=== PATIENT | male | born 1995 | race Caucasian/White ===

== ENCOUNTER → 2017-07-16 | Outpatient (CLI) | payer BC | LOC: LAB.O 08:38 | PROVIDERS: ATTEND Nurse Practitioner Family | DX: Z00.00 Encounter for general adult medical examination without abnormal findings (principal) ==

== ENCOUNTER → 2017-10-07 | Outpatient (CLI) | payer BC ==
--- NOTE | 2017-10-08 08:27 | CT ---
Louie Chirinos ( 21Y M ) October 07, 2017 EXAM DESCRIPTION: CT head without contrast CLINICAL HISTORY: Amnesia COMPARISON: None available TECHNIQUE: Noncontrast head CT was performed with routine protocol. FINDINGS: Normal zaman-white matter differentiation. Ventricles and sulci are normal for age. No high density hemorrhage, focal edema or shift of the midline. No sulcal effacement. Normal orbital contents. Basilar cisterns appear clear. Intact calvarium with no fracture or lytic lesion. Normal aeration of tympanic cavities and mastoid air cells. No fluid levels in the paranasal sinuses. Skull base appears intact. Symmetrical internal auditory canals. Coronal and sagittal reformatted images confirm the findings. IMPRESSION: No acute intracranial pathologic process. This exam was performed according to our departmental dose-optimization program, which includes automated exposure control, adjustment of the mA and/or kV according to patient size and/or use of iterative reconstruction technique. Total DLP equals 859.97 mGycm. Electronically signed by: Caleb Rivera MD 10/08/2017 8:25 AM CDT
== END ==
LOC: CT 08:28
PROVIDERS: ATTEND Nurse Practitioner Family
DX: R41.3 Other amnesia (principal)

== ENCOUNTER → 2019-03-24 | Outpatient (CLI) | payer BC | LOC: YCFC.O 16:07 | PROVIDERS: ATTEND Nurse Practitioner Family | DX: R73.09 Other abnormal glucose (principal); M25.50 Pain in unspecified joint ==

== ENCOUNTER 2019-12-17 19:15 | Emergency (ER) | payer SELFPAY ==
[2019-12-17 19:39] VITALS: BP 146/93; TEMP 97.6
[2019-12-17] MEDS ORDERED: AMOXICILLIN & POT CLAVULANATE 875 MG TAB PO ONE (19:42)
--- NOTE | 2019-12-17 19:45 | ED.PDOC ---
History of Present Illness - General Chief Complaint: ENT Problem Stated Complaint: sore throat, hurt to swallow Time Seen by Provider: 12/17/19 19:42 Source: patient Exam Limitations: no limitations - History of Present Illness Initial Comments: 24 yo with tonsillitis bilat with severe erythema but no exudates. 48 hr duration. mild fever and body aches associated. no abscess. Timing/Duration: other Severity: moderate Improving Factors: nothing Worsening Factors: nothing Associated Symptoms: fever/chills, loss of appetite, malaise Home Medications: Ambulatory Orders Amoxicillin & Pot Clavulanate [Augmentin Tab] 875 mg PO BID #20 tab 12/17/19 Review of Systems - Review of Systems Constitutional: States: fever, malaise EENTM: States: throat pain Respiratory: States: no symptoms reported Cardiology: States: no symptoms reported Gastrointestinal/Abdominal: States: no symptoms reported Genitourinary: States: no symptoms reported Musculoskeletal: States: no symptoms reported Skin: States: no symptoms reported Neurological: States: no symptoms reported Endocrine: States: no symptoms reported All other Systems: No Change from Baseline Past Medical History (General) - Patient Medical History Hx Asthma: No Hx of COPD: No Hx Hypertension: No Hx Diabetes: No Surgical History: other - Vaccination History Hx Tetanus, Diphtheria Vaccination: Yes Hx Influenza Vaccination: No Hx Pneumococcal Vaccination: No - Social History Hx Tobacco Use: Yes Hx Alcohol Use: Yes Family Medical History - Family History Mother Hx Cardiac Disease: Yes Physical Exam - Physical Exam General Appearance: Alert, Comfortable, No apparent distress Eye Exam: bilateral normal Ears, Nose, Throat: hearing grossly normal, pharyngeal erythema, tonsillar swelling Neck: full range of motion Respiratory: lungs clear, normal breath sounds, no respiratory distress, no accessory muscle use Cardiovascular/Chest: normal peripheral pulses, no edema, other - reg rate Peripheral Pulses: radial,right: 2+, radial,left: 2+ Rectal Exam: deferred Extremity: normal range of motion, no calf tenderness, normal capillary refill Neurologic: manager alliance II-XII nml as tested, alert, normal mood/affect, oriented x 3 Skin Exam: normal color Comments: Vital Signs - 24 hr 12/17/19 19:32 Temperature 97.6 F Pulse Rate [ 100 H left] Respiratory 18 Rate Blood Pressure 146/93 [left] O2 Sat by Pulse 97 Oximetry Progress - Progress Progress: 12/17/19 19:45 24 yo cm with bilateral acute tonsillitis. will cover with 10 days of oral augmentin. keep well hydrated. motrin for pain. keep routine fu with pcp. er warnings. lisa solorio [phone] Departure - Departure Clinical Impression: Tonsillitis Disposition: Discharge to Home or Self Care Condition: Fair Departure Forms: ED Discharge - Pt. Copy, Patient Portal Self Enrollment Instructions: Sore Throat, Adult (DC) Diet: regular diet Activity: increase activity as tolerated Referrals: Denise Ruiz NP [Primary Care Provider] - 1-2 Weeks Prescriptions: Amoxicillin & Pot Clavulanate [Augmentin Tab] 875 mg PO BID #20 tab Home Medications: Ambulatory Orders Amoxicillin & Pot Clavulanate [Augmentin Tab] 875 mg PO BID #20 tab 12/17/19 Additional Instructions: 24 yo cm with bilateral acute tonsillitis. will cover with 10 days of oral augmentin. keep well hydrated. motrin for pain. keep routine fu with pcp. er warnings.
[2019-12-17 20:02] VITALS: O2SAT 99
== END 2019-12-17 19:57 | disposition home or self-care (01) ==
LOC: ER 19:15
DX: J03.90 Acute tonsillitis, unspecified (principal); F17.200 Nicotine dependence, unspecified, uncomplicated

== ENCOUNTER 2020-07-28 01:09 | Emergency (ER) | payer OTHER, SELFPAY ==
[2020-07-28] MEDS ORDERED: SODIUM CHLORIDE 0.9% 1000ML 1,000 ML IVS ONE ×2 (01:25→03:31)
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
[2020-07-28] MEDS ORDERED: SULFA/TRIMETH 800/160 (DS) TAB 1 EA TAB PO ONE (04:30)
[2020-07-28] MEDS ORDERED: TETANUS,DIPHTHERIA,PERTUSSIS 1 EA SYG IM ONE (04:30)
[2020-07-28 05:09] VITALS: BP 128/74; TEMP 97.8; O2SAT 98
== END 2020-07-28 05:10 | disposition home or self-care (01) ==
LOC: ER 01:09
DX: S62.323A Displaced fracture of shaft of third metacarpal bone, left hand, initial encounter for closed fracture (principal); S60.512A Abrasion of left hand, initial encounter; S70.211A Abrasion, right hip, initial encounter; F10.129 Alcohol abuse with intoxication, unspecified; R10.9 Unspecified abdominal pain; I50.9 Heart failure, unspecified; Z87.891 Personal history of nicotine dependence; V47.5XXA Car driver injured in collision with fixed or stationary object in traffic accident, initial encounter; Y92.410 Unspecified street and highway as the place of occurrence of the external cause
CPT/HCPCS: 70450; 71250; 72125; 73110; 73551; 74176; 80053; 80307; 80320; 81001; 82150; 82550; 82553; 83605; 83690; 83880; 84484; 85025; 85610; 85730; 90471; 90715; 93005; J7030